=== PATIENT | female | born 1935 | race Two or more races ===

== ENCOUNTER 2023-12-15 00:28 | Emergency (ER) | payer OTHER ==
[~2023-12-15] VITALS: Ht 154.9 cm; Wt 49.3 kg
[2023-12-15 01:29] LABS: BASOPHILS % (AUTO) 0.8 % (0.0-2.0); EOSINOPHILS % (AUTO) 0.1 % (1.0-6.0); HEMATOCRIT 29.2 % (36-46); HEMOGLOBIN 9.5 g/dL (12.0-16.0); LYMPHOCYTES # (AUTO) 2.1 K/uL (1.0-4.8); LYMPHOCYTES % (AUTO) 21.4 % (22.0-44.0); MEAN CORPUSCULAR HEMOGLOBIN 31.3 pg (26.0-34.0); MEAN CORPUSCULAR HGB CONC 32.4 G/dL (31.0-37.0); MEAN CORPUSCULAR VOLUME 97 fL (80-100); MONOCYTES # (AUTO) 0.8 K/uL (0.1-1.0); MONOCYTES % (AUTO) 7.8 % (2.0-9.0); NEUTROPHILS # (AUTO) 6.8 K/uL (1.8-7.7); NEUTROPHILS % (AUTO) 69.9 % (40.0-70.0); PLATELET COUNT (AUTO) 280 K/uL (150-450); RED BLOOD CELL COUNT(AUTO) 3.02 MIL/uL (4.00-5.20); RED CELL DISTRIBUTION WIDTH 15.4 % (11.5-14.5); WHITE BLOOD COUNT (AUTO) 9.7 K/uL (4.5-11.0)
[2023-12-15 01:37] LABS: CALCIUM, TOTAL 9.3 mg/dL (8.8-10.5); CREATININE 1.09 mg/dL (0.60-1.30); POTASSIUM 3.6 mmol/L (3.5-5.1)
[2023-12-15 01:43] LABS: ALBUMIN 2.9 g/dL (3.4-5.0); BILIRUBIN,TOTAL 0.6 mg/dL (0.1-1.0); TOTAL PROTEIN, SERUM 6.7 g/dL (6.4-8.2)
[2023-12-15 01:45] LABS: TROPONIN I-HIGH SENSITIVITY 28 ng/L (<51)
[2023-12-15] MEDS ORDERED: POLY17PO62 PO (06:27)
[2023-12-15 07:30] VITALS: BP 112/59; PULSE 91; RESP 19; TEMP 98.2
[2023-12-15] MEDS: FAMOTIDINE 20 MG/2 ML VIAL IVP ONE (07:59)
[2023-12-15] MEDS: SODIUM CHLORIDE 0.9% 1,000 ML IV ONE (07:59)
== END 2023-12-15 09:36 | disposition home or self-care (01) ==
LOC: EMS 00:28
DX: K59.00 Constipation, unspecified (principal)
CPT/HCPCS: 99285; 96374; 76705; 96361; 80053; 83690; 84484; 85025; 36415; 74022; 93005; J3490; J7030